=== PATIENT | male | born 1935 ===

== ENCOUNTER → 2022-02-10 | Outpatient (CLI) | payer MEDICARE ==
[~2022-02-10] MED LIST: IOHEXOL 300 MG/ML 75 ML VIAL. IV ONE
[2022-02-10 10:47] LABS: CREATININE 0.6 mg/dL (0.7-1.3); GFR 128.4
--- NOTE | 2022-02-10 13:00 | RAD ---
EXAM: Abdomen and pelvis CT with and without intravenous contrast. HISTORY: Hematuria. TECHNIQUE: Computed tomographic images of the abdomen and pelvis were obtained prior to and following the administration of intravenous contrast. Multiplanar reformatting was performed. *One or more of the following individualized dose reduction techniques were utilized for this examina tion: 1. Automated exposure control. 2. Adjustment of the mA and/or kV according to patient size. 3. Use of iterative reconstruction technique. COMPARISON: None. FINDINGS: Evaluation of the lower thorax demonstrates mild emphysema. There is posterior dependent an d basilar atelectasis. There are is a calcified right lower lobe granuloma. There is a 4 mm nodule wi thin the anterior right middle lobe. There is coronary artery calcification. There are median sternot danya changes. There is gynecomastia. There is a tiny hiatal hernia. No hepatic lesion is seen. There is cholelithiasis. There is a calcification along the pancreatic bod y, vascular or due to the sequela of chronic pancreatitis. The spleen is normal in size. The adrenal glands are unremarkable. The stomach is unremarkable. There is no appendicitis. There is no bowel obs truction. There is moderate colonic stool. There is sigmoid diverticulosis. There is no hydronephrosis. There are tiny nonobstructing left renal stones measuring up to 1 mm. The re are several foci of hyperdensity within both kidneys likely due to a component of nephrocalcinosis . There is a 5 mm hyperdense lesion within the anterior mid zone of the right kidney, possibly due to parenchymal calcification given the absence of a cyst or convincing mass in this location. No urothe lial lesion is seen within the opacified portions of the ureters. Evaluation of the urinary bladder i s limited due to metallic artifact from bilateral hip arthroplasties. No convincing bladder mucosal l esion is seen. The prostate is absent. There is aortic and aortic branch vessel atherosclerosis. There is no aneurysm. There are enlarged re troperitoneal lymph nodes. For reference purposes, there is a left retroperitoneal lymph node slightl y proximal to the iliac bifurcation measuring 1.8 cm in transaxial dimension. There is degenerative c hange involving the spine. There is no acute osseous finding. There is a sclerotic lesion within the inferior aspect of T10. There is also a tiny suspected bone island within S1. There is a chronic mild superior endplate depression at T12. IMPRESSION: 1. No acute abdominal or pelvic finding. 2. Punctate nonobstructing left renal stones and suspected component of nephrocalcinosis. There is a 5 mm hyperdense lesion within the anterior mid zone of the right kidney which is not clearly a hemorr hagic cyst or solid lesion. This is likely due to parenchymal calcification. No urothelial lesion is seen. Evaluation of the bladder is limited due to metallic artifact. 3. Retroperitoneal lymphadenopathy. Correlation with any prior available studies may be useful to ass ess for interval change. Given a history of prostate malignancy, the possibility of mastoid lymphaden opathy is not excluded. 4. Sigmoid diverticulosis. 5. Cholelithiasis. 6. 4 mm right middle lobe pulmonary nodule. Follow-up can be performed in one year. 7. Sclerotic lesion within T10. Is not typical in appearance for a bone island or bone infarct or marie nges related to a Schmorl's node. The possibility of an osseous metastasis is not excluded in this pa tient with a history of prostate cancer. Electronically signed by: Hillary Breaux MD (02/10/2022 12:57 PM) [id number]
== END ==
LOC: CT 09:56
PROVIDERS: ATTEND Specialist
DX: C61 Malignant neoplasm of prostate (principal); K80.20 Calculus of gallbladder without cholecystitis without obstruction; K57.30 Diverticulosis of large intestine without perforation or abscess without bleeding; N20.0 Calculus of kidney; K44.9 Diaphragmatic hernia without obstruction or gangrene; R31.9 Hematuria, unspecified; J43.9 Emphysema, unspecified; J98.11 Atelectasis; J84.10 Pulmonary fibrosis, unspecified; I25.10 Atherosclerotic heart disease of native coronary artery without angina pectoris; N62 Hypertrophy of breast; I70.0 Atherosclerosis of aorta; R59.0 Localized enlarged lymph nodes; R91.1 Solitary pulmonary nodule
CPT/HCPCS: 36415; 74178; 82565; 84520; Q9967